=== PATIENT | male | born 1980 | race Hispanic/Latino ===

== ENCOUNTER 2020-05-20 00:38 | Inpatient (IN) | payer OTHER ==
[2020-05-20] MEDS ORDERED: Dextrose 5% in Water 1,000 ML IV PRN (01:38)
[2020-05-20] MEDS ORDERED: Morphine 2 MG/ML VIAL SLOW IVP PRN (01:38)
[2020-05-20] MEDS ORDERED: Ondansetron PF 4 MG/2 ML Vial IVP PRN (01:38)
[2020-05-20] MEDS ORDERED: hydrALAZINE 20 MG/ML VIAL SLOW IVP PRN (01:38)
[2020-05-20] MEDS ORDERED: Dextrose 50% Abboject 50 ML SYRINGE SLOW IVP PRN (01:38)
[2020-05-20] MEDS ORDERED: Sodium Chloride 0.9% 1,000 ML IV SCH (01:45)
[2020-05-20] MEDS ORDERED: Fentanyl 100 MCG/2 ML VIAL ONE (01:47)
[2020-05-20 02:41] LABS: ALT (SGPT) 25 U/L (8-55); AST (SGOT) 30 U/L (5-34); Albumin 3.8 g/dL (3.5-5.0); Alkaline Phosphatase 182 U/L (40-110); Anion Gap 15 mmol/L (10-20); BUN (Urea Nitrogen) 45 mg/dL (8.9-20.6); Bilirubin, Total 1.5 mg/dL (0.2-1.2); Calc. Creatinine Clearance 0 mL/min (70-130); Carbon Dioxide 22 mmol/L (22-29); Chloride 105 mmol/L (98-107); Globulin 4.5 g/dL (2.4-3.5); Glucose 92 mg/dL (70-105); Potassium 5.2 mmol/L (3.5-5.1); Protein, Total 8.3 g/dL (6.0-8.3); Sodium 137 mmol/L (136-145)
[2020-05-20 03:07] VITALS: BMI 20.9
[2020-05-20] MEDS ORDERED: Morphine 4 MG/ML VIAL ONE ×4 (03:33→18:18)
[2020-05-20] MEDS: Morphine 4 MG/ML VIAL SLOW IVP PRN ×5 (03:38→22:24)
[2020-05-20 04:16] LABS: #Eosinphils 0.1 thou/uL (0.0-0.7); #Lymphocytes 1.5 thou/uL (1.20-3.40); #Monocytes 1.2 thou/uL (0.11-0.59); #Neutrophils 8.1 thou/uL (1.40-6.50); %Basophils 0.4 % (0.0-1.0); %Eosinophils 1.1 % (0.0-10.0); %Lymphocytes 13.3 % (21.0-51.0); %Monocytes 10.7 % (0.0-10.0); %Neutrophils 74.4 % (42.0-75.0); Hemoglobin 10.4 g/dL (14.0-18.0); Mean Corpuscular Hemoglobin 28.4 pg (27.0-31.0); Mean Platelet Volume 8.3 fL (7.4-10.4); Platelet Count 400 thou/uL (130-400); RBC Distribution Width 17.9 % (11.5-14.5); Red Blood Cell (RBC) Count 3.67 mill/uL (4.70-6.10); White Blood Cell (WBC) Count 10.9 thou/uL (4.8-10.8)
[2020-05-20 04:58] LABS: Magnesium 1.8 mg/dL (1.6-2.6); Phosphorus 3.4 mg/dL (2.3-4.7)
[2020-05-20 08:30] LABS: SARS-CoV-2 PCR by NAA Not Detected (NotDetected)
[2020-05-20] MEDS: Sodium Chloride 0.9% 1,000 ML IV SCH ×2 (09:10→17:27)
[2020-05-20] MEDS ORDERED: Famotidine/PF 20 mg/2ml Vial ONE (09:19)
[2020-05-20] MEDS: Famotidine/PF 20 mg/2ml Vial SLOW IVP SCH ×2 (09:22→20:02)
[2020-05-20] MEDS ORDERED: fentaNYL 50 mcg/hour Patch TD SCH (10:30)
[2020-05-21] MEDS: Morphine 4 MG/ML VIAL SLOW IVP PRN ×6 (02:55→22:42)
[2020-05-21] MEDS: Sodium Chloride 0.9% 1,000 ML IV SCH ×2 (04:45→13:58)
[2020-05-21 07:09] LABS: #Eosinphils 0.2 thou/uL (0.0-0.7); #Monocytes 0.6 thou/uL (0.11-0.59); #Neutrophils 5.8 thou/uL (1.40-6.50); %Basophils 0.4 % (0.0-1.0); %Eosinophils 2.5 % (0.0-10.0); %Lymphocytes 12.5 % (21.0-51.0); %Monocytes 8.4 % (0.0-10.0); %Neutrophils 76.4 % (42.0-75.0); Hemoglobin 8.3 g/dL (14.0-18.0); Mean Corpuscular HGB CONC 32.7 g/dL (32.0-36.0); Mean Corpuscular Hemoglobin 28.7 pg (27.0-31.0); Mean Platelet Volume 8.3 fL (7.4-10.4); Platelet Count 290 thou/uL (130-400); RBC Distribution Width 17.1 % (11.5-14.5); Red Blood Cell (RBC) Count 2.88 mill/uL (4.70-6.10); White Blood Cell (WBC) Count 7.6 thou/uL (4.8-10.8)
[2020-05-21 07:38] LABS: Anion Gap 13 mmol/L (10-20); BUN (Urea Nitrogen) 30 mg/dL (8.9-20.6); Calc. Creatinine Clearance 112 mL/min (70-130); Calcium 7.7 mg/dL (7.8-10.44); Carbon Dioxide 20 mmol/L (22-29); Chloride 111 mmol/L (98-107); Glucose 72 mg/dL (70-105); Magnesium 1.9 mg/dL (1.6-2.6); Phosphorus 2.8 mg/dL (2.3-4.7); Potassium 3.7 mmol/L (3.5-5.1); Sodium 140 mmol/L (136-145)
[2020-05-21] MEDS: Famotidine/PF 20 mg/2ml Vial SLOW IVP SCH ×2 (08:21→20:28)
[2020-05-21] MEDS ORDERED: Multivitamins, Adult 10 ML, Multitrace-4 NEONATAL 10 ML in D15W-AA 5% with Lytes 2,000 ML IV SCH (14:00)
[2020-05-21] MEDS: Multivitamins, Adult 10 ML, Multitrace-4 NEONATAL 10 ML in D15W-AA 5% with Lytes 2,000 ... IV SCH ×2 (14:04→22:35)
[2020-05-22] MEDS: Morphine 4 MG/ML VIAL SLOW IVP PRN ×5 (02:49→20:01)
[2020-05-22 06:44] LABS: #Eosinphils 0.2 thou/uL (0.0-0.7); #Lymphocytes 1.1 thou/uL (1.20-3.40); #Monocytes 0.8 thou/uL (0.11-0.59); #Neutrophils 4.3 thou/uL (1.40-6.50); %Basophils 0.4 % (0.0-1.0); %Eosinophils 3.1 % (0.0-10.0); %Lymphocytes 16.9 % (21.0-51.0); %Monocytes 11.7 % (0.0-10.0); %Neutrophils 67.8 % (42.0-75.0); Mean Corpuscular HGB CONC 33.1 g/dL (32.0-36.0); Mean Corpuscular Hemoglobin 28.6 pg (27.0-31.0); Mean Corpuscular Volume 86.5 fL (78.0-98.0); Mean Platelet Volume 8.6 fL (7.4-10.4); Platelet Count 311 thou/uL (130-400); RBC Distribution Width 17.1 % (11.5-14.5); Red Blood Cell (RBC) Count 2.78 mill/uL (4.70-6.10); White Blood Cell (WBC) Count 6.4 thou/uL (4.8-10.8)
[2020-05-22 07:07] LABS: Anion Gap 9 mmol/L (10-20); BUN (Urea Nitrogen) 22 mg/dL (8.9-20.6); Calc. Creatinine Clearance 102 mL/min (70-130); Calcium 7.7 mg/dL (7.8-10.44); Carbon Dioxide 24 mmol/L (22-29); Chloride 111 mmol/L (98-107); Glucose 151 mg/dL (70-105); Magnesium 1.9 mg/dL (1.6-2.6); Phosphorus 2.3 mg/dL (2.3-4.7); Potassium 3.6 mmol/L (3.5-5.1); Sodium 140 mmol/L (136-145)
[2020-05-22] MEDS ORDERED: Potassium Phosphate 30 MMOL in Sodium Chloride 0.9% 500 ML IVPB SCH (07:30)
[2020-05-22] MEDS ORDERED: Magnesium Sulfate 2 GM in Sodium Chloride 0.9% 100 ML IV SCH ×2 (07:30→21:15)
[2020-05-22] MEDS ORDERED: Magnesium 2 GM/50 ML 2 GM in Premix Bag 1 BAG IVPB SCH (07:45)
[2020-05-22] MEDS: risperiDONE 1 MG TAB PO SCH (20:06)
[2020-05-22] MEDS ORDERED: MAGNESIUM SULFATE IVPB SCH (22:00)
[2020-05-22] MEDS ORDERED: [UNRECOGNIZED DRUG - OTHER] IVPB SCH (22:00)
[2020-05-22] MEDS ORDERED: POTASSIUM PHOSPHATE IVPB SCH (22:00)
[2020-05-22] MEDS: Multivitamins, Adult 10 ML, Multitrace-4 NEONATAL 10 ML in D15W-AA 5% with Lytes 2,000 ... IV SCH (23:50)
[2020-05-23] MEDS: Morphine 4 MG/ML VIAL SLOW IVP PRN ×5 (00:41→21:58)
[2020-05-23 06:12] LABS: #Eosinphils 0.3 thou/uL (0.0-0.7); #Monocytes 0.6 thou/uL (0.11-0.59); #Neutrophils 3.9 thou/uL (1.40-6.50); %Basophils 0.1 % (0.0-1.0); %Eosinophils 5.4 % (0.0-10.0); %Lymphocytes 17.3 % (21.0-51.0); %Monocytes 9.9 % (0.0-10.0); %Neutrophils 67.4 % (42.0-75.0); Hemoglobin 8.4 g/dL (14.0-18.0); Mean Corpuscular HGB CONC 33.6 g/dL (32.0-36.0); Mean Corpuscular Hemoglobin 29.7 pg (27.0-31.0); Mean Corpuscular Volume 88.5 fL (78.0-98.0); Mean Platelet Volume 8.3 fL (7.4-10.4); Platelet Count 324 thou/uL (130-400); RBC Distribution Width 17.1 % (11.5-14.5); Red Blood Cell (RBC) Count 2.83 mill/uL (4.70-6.10); White Blood Cell (WBC) Count 5.8 thou/uL (4.8-10.8)
[2020-05-23 06:50] LABS: Anion Gap 14 mmol/L (10-20); BUN (Urea Nitrogen) 17 mg/dL (8.9-20.6); Calc. Creatinine Clearance 125 mL/min (70-130); Calcium 7.7 mg/dL (7.8-10.44); Carbon Dioxide 23 mmol/L (22-29); Chloride 105 mmol/L (98-107); Glucose 113 mg/dL (70-105); Magnesium 2.5 mg/dL (1.6-2.6); Phosphorus 4.6 mg/dL (2.3-4.7); Potassium 4.1 mmol/L (3.5-5.1); Sodium 138 mmol/L (136-145)
[2020-05-23] MEDS: risperiDONE 1 MG TAB PO SCH (21:23)
[2020-05-23] MEDS: Multivitamins, Adult 10 ML, Multitrace-4 NEONATAL 10 ML in D15W-AA 5% with Lytes 2,000 ... IV SCH (22:33)
[2020-05-24] MEDS: Morphine 4 MG/ML VIAL SLOW IVP PRN ×6 (02:35→22:41)
[2020-05-24] MEDS: Enoxaparin Sodium 30 MG/0.3 ML SYRINGE SC SCH (09:09)
[2020-05-24] MEDS: risperiDONE 1 MG TAB PO SCH (22:38)
[2020-05-24] MEDS: Multivitamins, Adult 10 ML, Multitrace-4 NEONATAL 10 ML in D15W-AA 5% with Lytes 2,000 ... IV SCH (22:45)
[2020-05-25] MEDS: Morphine 4 MG/ML VIAL SLOW IVP PRN ×6 (02:48→23:41)
[2020-05-25] MEDS ORDERED: Enoxaparin Sodium 40 MG/0.4 ML SYRINGE SC SCH (09:30)
[2020-05-25] MEDS: Enoxaparin Sodium 30 MG/0.3 ML SYRINGE SC SCH (09:31)
[2020-05-25] MEDS: risperiDONE 1 MG TAB PO SCH (22:32)
[2020-05-25] MEDS: Multivitamins, Adult 10 ML, Multitrace-4 NEONATAL 10 ML in D15W-AA 5% with Lytes 2,000 ... IV SCH (22:42)
[2020-05-26] MEDS: Morphine 4 MG/ML VIAL SLOW IVP PRN ×5 (04:26→22:13)
[2020-05-26] MEDS: Enoxaparin Sodium 40 MG/0.4 ML SYRINGE SC SCH (08:27)
[2020-05-26] MEDS ORDERED: Ketorolac Tromethamine 30 MG/ML VIAL IVP PRN (17:59)
[2020-05-26] MEDS ORDERED: Ketorolac Tromethamine 30 MG/ML VIAL IVP SCH (18:00)
[2020-05-26] MEDS: Multivitamins, Adult 10 ML, Multitrace-4 NEONATAL 10 ML in D15W-AA 5% with Lytes 2,000 ... IV SCH (21:21)
[2020-05-26] MEDS: risperiDONE 1 MG TAB PO SCH (22:12)
[2020-05-27] MEDS: Morphine 4 MG/ML VIAL SLOW IVP PRN ×4 (02:36→16:53)
[2020-05-27] MEDS: Enoxaparin Sodium 40 MG/0.4 ML SYRINGE SC SCH (08:37)
[2020-05-27 16:35] VITALS: BP 132/63; TEMP 99
== END 2020-05-27 17:36 | DRG 913 ==
LOC: EEVIPCON 00:38 → ERS 00:38 → ERHOLD 01:42 → T4-B 19:24
PROVIDERS: ADMIT Surgery; ATTEND Surgery
PROC: 0JC83ZZ Extirpation of Matter from Abdomen Subcutaneous Tissue and Fascia, Percutaneous Approach (ICD-10-PCS; principal; 2020-05-20)
DX: S31.149A Puncture wound of abdominal wall with foreign body, unspecified quadrant without penetration into peritoneal cavity, initial encounter (principal); E43 Unspecified severe protein-calorie malnutrition; Z20.822 Contact with and (suspected) exposure to COVID-19; X78.8XXA Intentional self-harm by other sharp object, initial encounter; Z68.21 Body mass index [BMI] 21.0-21.9, adult; Z93.3 Colostomy status
CPT/HCPCS: 36415; 36416; 80048; 80053; 83735; 84100; 85025; 87635; 96374; 96376; G0390; J1650; J1885; J2270; J3010; J3475; J7030; J7050; S0028; U0003; U0005